=== PATIENT | male | born 2000 | race Caucasian/White ===

== ENCOUNTER 2019-05-23 05:57 | Emergency (ER) | payer BC ==
[~2019-05-23] VITALS: Ht 177.8 cm; Wt 95.3 kg
[2019-05-23] MEDS ORDERED: WELLBUTRIN SR150 M1 PO (06:10)
[2019-05-23 06:36] LABS: HEMATOCRIT 50.2 % (36.0-47.0); HEMOGLOBIN 16.7 g/dl (12.5-16.1); MEAN CELL VOLUME 85 fl (80.0-95.0); MEAN CORPUSCULAR HEMOGLOBIN 28 pg (26.0-32.0); MEAN CORPUSCULAR HGB CONC 33 g/dl (33.0-37.0); MEAN PLATELET VOLUME 10.3 fl (7.4-10.4); PLATELET COUNT 200 K/mm3 (130-400); RED BLOOD COUNT 5.94 M/mm3 (4.20-5.60); REDCELL DISTRIBUTION WIDTH-CV 13.6 % (11.5-14.5)
[2019-05-23 06:50] LABS: ALBUMIN 4.9 gm/dL (3.5-5.0); BILIRUBIN,TOTAL 1.6 mg/dL (0.0-1.0); CALCIUM 9.7 mg/dL (8.4-10.2); CREATININE, serum 0.92 (0.66-1.25); MAGNESIUM 1.6 mg/dL (1.6-2.3); POTASSIUM 4.4 mmol/L (3.4-5.0); TOTAL PROTEIN 8.2 gm/dL (6.4-8.2)
[2019-05-23 07:35] LABS: BAND 14 % (0-10); LYMPHOCYTE 5 % (20.0-51.0); NEUTROPHILS 78 % (42.0-75.2); PLATELET ESTIMATE NORMAL (NORMAL)
[2019-05-23 07:43] LABS: COLLECTION METHOD CLEAN CATCH
[2019-05-23 07:49] LABS: MUCOUS Present /lpf; PH 9 (5-8); SQUAMOUS EPITHELIAL None Seen /hpf; URINE APPEARANCE Clear; URINE BACTERIA None Seen /hpf; URINE BILIRUBIN Negative (NEGATIVE); URINE BLOOD Negative (NEGATIVE); URINE COLOR Yellow; URINE GLUCOSE Negative (NEGATIVE); URINE KETONE Trace (NEGATIVE); URINE LEUKOCYTE ESTERASE Negative (NEGATIVE); URINE NITRATE Negative (NEGATIVE); URINE PROTEIN(semi-quant) 2+ (NEGATIVE); URINE RBC 0-2 /hpf; URINE UROBILINOGEN Negative (NEGATIVE)
[2019-05-23] MEDS ORDERED: ZOFRAN ODT8 MG PO (08:31)
[2019-05-23 08:50] VITALS: BP 102/59; PULSE 96; TEMP 98.1
== END 2019-05-23 08:50 | disposition home or self-care (01) ==
LOC: COL.ER 05:57
PROVIDERS: Emergency Medicine
DX: R11.10 Vomiting, unspecified (principal); R10.30 Lower abdominal pain, unspecified; E86.9 Volume depletion, unspecified; F41.9 Anxiety disorder, unspecified
CPT/HCPCS: J1200; J2405; J2550; J7030

== ENCOUNTER 2021-02-24 03:01 | Emergency (ER) | payer BC ==
[~2021-02-24] VITALS: Ht 177.8 cm; Wt 100.0 kg
[~2021-02-24 03:01] MED LIST: WELLBUTRIN SR150 M1 PO; ZOFRAN ODT8 MG PO
[2021-02-24 03:04] VITALS: TEMP 96.3
[2021-02-24 03:59] VITALS: BP 108/60; PULSE 76
== END 2021-02-24 04:03 | disposition home or self-care (01) ==
LOC: COL.ER 03:01
DX: F10.129 Alcohol abuse with intoxication, unspecified (principal); F41.9 Anxiety disorder, unspecified; Z79.899 Other long term (current) drug therapy
CPT/HCPCS: J2405; J7030